=== PATIENT | male | born 1965 | race Caucasian/White ===

== ENCOUNTER → 2019-06-05 17:00 | Outpatient (CLI) | payer OTHER, SELFPAY ==
--- NOTE | 2019-06-05 | DI.MRI.S_ITS ---
PROCEDURE: MR LUMBAR SPINE WO CON INDICATIONS: Low back pain. Right leg radicular pain TECHNIQUE: Noncontrast sagittal T1 spin echo and T2 fast echo, sagittal STIR, axial T1 and T2 fast spin echo through the lumbar spine. In cases with scoliosis, additional coronal T2 fast spin echo may be performed. COMPARISON: None. FINDINGS: Image quality: Excellent. Alignment and Curvature: There is normal bony alignment. Bone Marrow: Marrow is of normal overall signal. No acute vertebral body compression fractures. Spinal Cord: Conus medullaris terminates at the L1 level. Visualized cord demonstrates normal signal and size. Paraspinous Soft Tissues: No paravertebral masses. L1-L2: Normal appearance. L2-L3: Normal appearance except for a slight degree of degenerative disc desiccation without disc bulge or herniation, and no significant spinal or foraminal stenosis is associated. L3-L4: Normal appearance except for a mild degree of disc desiccation, and slight facet osteoarthritis without spinal or foraminal stenosis. L4-L5: Moderately severe degenerative disc disease with disc height reduction, disc desiccation, a posterior transverse disc bulge, and also facet osteoarthritis combining with that disc bulge to produce moderate bilateral left slightly greater than right foraminal stenosis. L5-S1: Minimal degenerative disc disease, mild facet osteoarthritis, mild secondary narrowing of the neural foramen bilaterally with potential for slight impingement on the course of the L5 nerve roots. IMPRESSION: The degenerative changes are quite mild except at L4-L5 where moderately severe degenerative disc disease is associated with a broad-based posterior transverse disc bulge and combines with facet osteoarthritis and hypertrophy to produce moderate bilateral left greater than right foraminal stenosis. Dictated by: Rigoberto Griggs M.D. on 06/06/2019 at 10:12 Approved by: Rigoberto Griggs M.D. on 06/06/2019 at 10:17
== END ==
PROVIDERS: PCP Physician Assistant Medical; Visit Provider Physical Medicine & Rehabilitation
DX: M54.5 Low back pain (principal); M47.26 Other spondylosis with radiculopathy, lumbar region; M51.16 Intervertebral disc disorders with radiculopathy, lumbar region; M48.061 Spinal stenosis, lumbar region without neurogenic claudication
CPT/HCPCS: 72148

== ENCOUNTER → 2022-11-10 14:58 | Outpatient (CLI) | payer OTHER, SELFPAY ==
--- NOTE | 2022-11-10 | DI.RAD.S_ITS ---
PROCEDURE: XR CHEST 2V INDICATIONS: Other forms of dyspnea TECHNIQUE: 2 views of the chest were acquired. COMPARISON: None. FINDINGS: Surgical changes and devices: None. Lungs and pleura: Lungs are clear. No pleural effusions or pneumothorax. Mediastinum: Mediastinal contours are normal. Heart size is normal. Bones and chest wall: No suspicious bony abnormalities. Soft tissues appear unremarkable. IMPRESSION: No acute cardiopulmonary disease. Dictated by: Kimi Benton M.D. on 11/10/2022 at 16:15 Approved by: Kimi Benton M.D. on 11/10/2022 at 16:16
== END ==
PROVIDERS: PCP Physician Assistant Medical; Referring Provider Internal Medicine Cardiovascular Disease; Visit Provider Internal Medicine Cardiovascular Disease
DX: R06.09 Other forms of dyspnea (principal); E78.00 Pure hypercholesterolemia, unspecified
CPT/HCPCS: 71046